=== PATIENT | male | born 1950 | race Caucasian/White ===

== ENCOUNTER 2025-02-03 16:11 | Inpatient (IN) | payer MEDICARE, OTHER ==
[~2025-02-03] VITALS: Ht 180.3 cm; Wt 135.2 kg
[2025-02-03] MEDS: IV NS 0.9% 1,000 ML BAG IV ONE (16:40)
[2025-02-03 16:55] LABS: BASOPHILS % (AUTO) 0.4 % (0.0-2.0); EOSINOPHILS # (AUTO) 0.1 K/uL (0.0-0.7); EOSINOPHILS % (AUTO) 0.8 % (0.0-6.0); HEMATOCRIT 47 % (39-51); HEMOGLOBIN 16.2 g/dL (13.5-17.5); LYMPHOCYTES # (AUTO) 1.3 K/uL (0.8-4.8); LYMPHOCYTES % (AUTO) 11.2 % (20.0-44.0); MEAN CORPUSCULAR HEMOGLOBIN 33 PG (26.0-33.0); MEAN CORPUSCULAR HGB CONC 35 g/dl (31.0-36.0); MEAN CORPUSCULAR VOLUME 95 fL (80-96); MONOCYTES # (AUTO) 1.1 K/uL (0.1-1.30); MONOCYTES % (AUTO) 9.8 % (2.0-12.0); NEUTROPHILS # (AUTO) 8.8 K/uL (1.8-8.9); NEUTROPHILS % (AUTO) 77.8 % (43.0-81.0); PLATELET COUNT (AUTO) 536 K/uL (150-450); RED BLOOD CELL COUNT(AUTO) 4.94 MIL/uL (4.5-6.0); RED CELL DISTRIBUTION WIDTH 14.3 % (11.5-15.0); WHITE BLOOD COUNT (AUTO) 11.3 K/uL (4.3-11.0)
[2025-02-03] MEDS: CEFEPIME 1 GM in IV D5W 50 ML IV ONE (17:00)
[2025-02-03 17:06] LABS: INR 1.08 (0.91-1.10); PARTIAL THROMBOPLASTIN TIME 25.6 SEC (24.3-34.3); PROTHROMBIN TIME 11.1 SECS (9.2-11.1)
[2025-02-03 17:10] LABS: LACTIC ACID 1.8 mmol/L (0.4-2.0)
[2025-02-03] MEDS ORDERED: DILTIAZEM HCL 25 MG IV ONE (17:12)
[2025-02-03 17:15] LABS: CALCIUM, SERUM 9.2 mg/dL (8.5-10.1); CARBON DIOXIDE 20 mmol/L (21-32); CHLORIDE 99 mmol/L (98-107); CREATININE 3.4 mg/dL (0.6-1.3); GLUCOSE 132 mg/dL (74-106); SODIUM SERUM 132 mmol/L (136-145); UREA NITROGEN, BLOOD 79 mg/dL (7-18)
[2025-02-03] MEDS: DILTIAZEM HCL 50 MG IV IV ONE (17:15)
[2025-02-03 17:19] LABS: ALANINE AMINOTRANSFERASE 45 U/L (12-78); ALKALINE PHOSPHATASE 159 U/L (46-116); ASPARTATE AMINOTRANSFERASE 47 U/L (15-37); BILIRUBIN,DIRECT 0.7 mg/dL (0.0-0.2); BILIRUBIN,TOTAL 1.3 mg/dL (0.2-1.0); TOTAL PROTEIN, SERUM 7.8 g/dL (6.4-8.2)
[2025-02-03] MEDS: Calcium Gluconate 1GM/10ML 4.65 MEQ in IV NS 0.9% 100 ML IV ONE (17:20)
[2025-02-03] MEDS ORDERED: Magnesium 1GM/D5W 100ML PREMIX 100 ML IV ONE (17:23)
[2025-02-03] MEDS ORDERED: ATOR10TA PO (17:24)
[2025-02-03] MEDS ORDERED: METF-440 PO (17:24)
[2025-02-03] MEDS ORDERED: LOSA25TA27 PO (17:24)
[2025-02-03] MEDS ORDERED: HYDR12.55 PO (17:24)
[2025-02-03] MEDS: Magnesium 1GM/D5W 100ML PREMIX 100 ML IV SCH (17:25)
[2025-02-03] MEDS: VANCOMYCIN 1 GM in IV D5W 250 ML IV ONE (17:58)
[2025-02-03] MEDS ORDERED: DIPHENOXYLATE HCL/ATROP SULF 1 UDTAB TABLET PO PRN (18:30)
[2025-02-03] MEDS ORDERED: ONDANSETRON HCL/PF 4 MG/2 ML VIAL IVP PRN (18:30)
[2025-02-03] MEDS ORDERED: DEXTROSE 50%-WATER 50 ML DISP.SYRIN IV PRN (18:30)
[2025-02-03] MEDS ORDERED: MORPHINE SULFATE INJ 2 MG/ML DISP.SYRIN IV PRN (18:30)
[2025-02-03] MEDS ORDERED: hydrALAZINE HCL IV 20 MG VIAL IV PRN (18:30)
[2025-02-03] MEDS ORDERED: ACETAMINOPHEN 325 MG TABLET PO PRN (18:30)
[2025-02-03 18:54] LABS: APPEARANCE,URINE CLEAR (CLEAR); BILIRUBIN,URINE Negative (NEGATIVE); BLOOD, URINE Small Ery/uL (NEGATIVE); COLOR,URINE YELLOW (YELLOW); KETONES,URINE Negative (NEGATIVE); LEUKOCYTE ESTERASE ,URINE Small (NEGATIVE); PH,URINE 5.5 (5.0-8.0); PROTEIN,URINE 30 mg/dl (NEGATIVE); UGLUCOSE Negative (NEGATIVE); UROBILINOGEN,URINE 0.2 EU/dL (0.2)
[2025-02-03 18:57] LABS: NITRITE, URINE NEGATIVE (NEGATIVE)
[2025-02-03 19:04] LABS: ADD URINE CULTURE YES; BACTERIA,URINE Few /HPF (None Seen); WBC,URINE 21-50 /HPF (0-3)
[2025-02-03 19:05] LABS: SQUAMOUS EPITHELIAL CELL,UR Few /HPF (None Seen)
[2025-02-03 21:30] VITALS: BP 141/79; TEMP 97.5; O2SAT 96
[2025-02-03] MEDS: IV NS 0.9% 1,000 ML IV SCH (21:48)
[2025-02-03] MEDS ORDERED: ENOXAPARIN SODIUM 80 MG/0.8 ML DISP.SYRIN SQ ONE (22:12)
[2025-02-03] MEDS: ENOXAPARIN SODIUM 120 MG/0.8 ML DISP.SYRIN SQ SCH (22:21)
[2025-02-03] MEDS: BLOOD SUGAR DIAGNOSTIC 1 EACH STRIP IN SCH (22:31)
[2025-02-04] VITALS: BP 113/53; TEMP 97.5; O2SAT 96
[2025-02-04 04:00] VITALS: BP 115/50; TEMP 98.4; O2SAT 96
[2025-02-04 07:19] LABS: BASOPHILS % (AUTO) 0.4 % (0.0-2.0); EOSINOPHILS # (AUTO) 0.1 K/uL (0.0-0.7); EOSINOPHILS % (AUTO) 0.9 % (0.0-6.0); HEMATOCRIT 44 % (39-51); LYMPHOCYTES # (AUTO) 0.9 K/uL (0.8-4.8); LYMPHOCYTES % (AUTO) 11.2 % (20.0-44.0); MEAN CORPUSCULAR HEMOGLOBIN 33 PG (26.0-33.0); MEAN CORPUSCULAR HGB CONC 35 g/dl (31.0-36.0); MEAN CORPUSCULAR VOLUME 94 fL (80-96); MONOCYTES # (AUTO) 0.8 K/uL (0.1-1.30); MONOCYTES % (AUTO) 9.4 % (2.0-12.0); NEUTROPHILS # (AUTO) 6.2 K/uL (1.8-8.9); NEUTROPHILS % (AUTO) 78.1 % (43.0-81.0); PLATELET COUNT (AUTO) 388 K/uL (150-450); RED BLOOD CELL COUNT(AUTO) 4.63 MIL/uL (4.5-6.0); RED CELL DISTRIBUTION WIDTH 14.5 % (11.5-15.0)
[2025-02-04 07:26] LABS: ALBUMIN 1.7 g/dL (3.4-5.0); CALCIUM, SERUM 8.8 mg/dL (8.5-10.1); CREATININE 1.9 mg/dL (0.6-1.3); MAGNESIUM 2.8 mg/dL (1.8-2.4); PHOSPHORUS 5.1 mg/dL (2.5-4.9); TOTAL PROTEIN, SERUM 6.8 g/dL (6.4-8.2)
[2025-02-04 08:00] VITALS: BP 91/52; TEMP 98.1; O2SAT 98
[2025-02-04] MEDS: ATORVASTATIN 10 MG TABLET PO SCH (08:06)
[2025-02-04] MEDS: APIXABAN 5 MG TABLET PO SCH (10:07)
[2025-02-04 11:15] LABS: POTASSIUM 2.8 mmol/L (3.5-5.1)
[2025-02-04] MEDS: POTASSIUM CHLORIDE 20 MEQ POWDER PACKET PO SCH (11:48)
[2025-02-04 12:00] VITALS: BP_SYST 132; BP_SYST 96; BP_DIAS 46; BP_DIAS 74; TEMP 98.2; O2SAT 98
[2025-02-04] MEDS: ALBUMIN 25% 25 GM in PREMIX 1 EA IV SCH (13:17)
[2025-02-04 15:14] LABS: CREATININE, URINE 77.9 MG/DL (30.0-125.0)
[2025-02-04 16:00] VITALS: BP 109/48; TEMP 98.6; O2SAT 97
[2025-02-04] MEDS: CEFEPIME 2 GM in IV D5W 100 ML IV SCH (16:04)
[2025-02-04 20:00] VITALS: BP 130/59; TEMP 98.1; O2SAT 97
[2025-02-05] VITALS: BP 115/50; TEMP 98.6; O2SAT 96
[2025-02-05 04:00] VITALS: BP 139/58; TEMP 98.8; O2SAT 96
[2025-02-05 08:00] VITALS: BP 118/58; TEMP 98.1; O2SAT 98
[2025-02-05 10:47] LABS: ALBUMIN 2.4 g/dL (3.4-5.0); CALCIUM, SERUM 9.3 mg/dL (8.5-10.1); CREATININE 1.4 mg/dL (0.6-1.3); MAGNESIUM 2.5 mg/dL (1.8-2.4); PHOSPHORUS 2.5 mg/dL (2.5-4.9); TOTAL PROTEIN, SERUM 7.6 g/dL (6.4-8.2)
[2025-02-05 11:09] LABS: BASOPHILS % (AUTO) 0.9 % (0.0-2.0); EOSINOPHILS # (AUTO) 0.1 K/uL (0.0-0.7); HEMATOCRIT 42 % (39-51); HEMOGLOBIN 14.2 g/dL (13.5-17.5); LYMPHOCYTES # (AUTO) 1.1 K/uL (0.8-4.8); LYMPHOCYTES % (AUTO) 21.4 % (20.0-44.0); MEAN CORPUSCULAR HEMOGLOBIN 33 PG (26.0-33.0); MEAN CORPUSCULAR HGB CONC 34 g/dl (31.0-36.0); MEAN CORPUSCULAR VOLUME 95 fL (80-96); MONOCYTES # (AUTO) 0.5 K/uL (0.1-1.30); MONOCYTES % (AUTO) 9.7 % (2.0-12.0); NEUTROPHILS # (AUTO) 3.3 K/uL (1.8-8.9); PLATELET COUNT (AUTO) 372 K/uL (150-450); RED BLOOD CELL COUNT(AUTO) 4.38 MIL/uL (4.5-6.0); RED CELL DISTRIBUTION WIDTH 14.2 % (11.5-15.0)
[2025-02-05 11:12] LABS: THYROID STIMULATING HORMONE 2.86 uIU/mL (0.358-3.74)
[2025-02-05 12:00] VITALS: BP 131/63; TEMP 98.4; O2SAT 98
[2025-02-05 16:00] VITALS: BP 117/70; TEMP 98.2; O2SAT 97
[2025-02-05 20:00] VITALS: BP 148/63; TEMP 98.4; O2SAT 97
[2025-02-06] VITALS (7 sets, daily range): BP systolic 136–157; BP diastolic 52–75; TEMP 97.9–98.6; O2SAT 95–97
[2025-02-06 08:11] LABS: PTH, INTACT 29 pg/mL (15-65)
[2025-02-06 08:50] LABS: BILIRUBIN,TOTAL 0.8 mg/dL (0.2-1.0); CALCIUM, SERUM 8.9 mg/dL (8.5-10.1); CREATININE 1.2 mg/dL (0.6-1.3); POTASSIUM 3.5 mmol/L (3.5-5.1); TOTAL PROTEIN, SERUM 6.6 g/dL (6.4-8.2)
[2025-02-06] MEDS ORDERED: APIX5TAB PO (09:54)
[2025-02-06] MEDS ORDERED: AMOX-430 PO (09:54)
[2025-02-06] MEDS: INSULIN REGULAR, HUMAN 100 UNIT/ML 3 ML VIAL SQ PRN (22:06)
[2025-02-07 04:00] VITALS: BP 149/72; TEMP 98.9; O2SAT 95
[2025-02-07 08:00] VITALS: BP 130/79; TEMP 98.6; O2SAT 95
[2025-02-07 08:36] LABS: ALBUMIN 2.1 g/dL (3.4-5.0); BILIRUBIN,TOTAL 0.8 mg/dL (0.2-1.0); POTASSIUM 3.3 mmol/L (3.5-5.1); TOTAL PROTEIN, SERUM 6.9 g/dL (6.4-8.2)
[2025-02-07] MEDS: POTASSIUM CHLORIDE 20 MEQ TAB.PRT.SR PO SCH (09:39)
== END 2025-02-07 12:30 | disposition home health service (06) | DRG 391 ==
LOC: ER 16:19 → TELE-TD 20:41 → TELE1 02-05 08:35 → MEDSG1 02-06 11:58
PROVIDERS: ADMIT Internal Medicine; ATTEND Internal Medicine
DX: K57.32 Diverticulitis of large intestine without perforation or abscess without bleeding (principal); E43 Unspecified severe protein-calorie malnutrition; N17.0 Acute kidney failure with tubular necrosis; R57.1 Hypovolemic shock; E87.1 Hypo-osmolality and hyponatremia; E87.20 Acidosis, unspecified; Z68.41 Body mass index [BMI] 40.0-44.9, adult; I48.91 Unspecified atrial fibrillation; E87.6 Hypokalemia; R19.7 Diarrhea, unspecified; D75.839 Thrombocytosis, unspecified; E83.42 Hypomagnesemia; E86.0 Dehydration; E88.09 Other disorders of plasma-protein metabolism, not elsewhere classified; I10 Essential (primary) hypertension; E83.9 Disorder of mineral metabolism, unspecified; E11.9 Type 2 diabetes mellitus without complications; R53.1 Weakness; E80.6 Other disorders of bilirubin metabolism; R74.01 Elevation of levels of liver transaminase levels; E86.9 Volume depletion, unspecified; R16.2 Hepatomegaly with splenomegaly, not elsewhere classified; Z79.84 Long term (current) use of oral hypoglycemic drugs
CPT/HCPCS: 36415; 71045-TC; 76700-TC; 80048-TC; 80053-TC; 80061-TC; 80076-TC; 81001; 82550-TC; 82570-TC; 82962-TC; 83605-TC; 83735-TC; 83880; 83970; 84100-TC; 84155; 84165; 84300-TC; 84439-TC; 84443-TC; 84484-TC; 85025-TC; 85730-TC; 87040-TC; 87086-TC; 93307-TC; 97110-TC; 97116-TC; 97530-TC; A4216; A4223; G0378; J0612; J0692; J1650; J1815; J3370; J3475; J3490; J7030; J7050; J7060; P9047